=== PATIENT | male | born 1965 | race Caucasian/White ===

== ENCOUNTER 2017-06-29 14:17 | Inpatient (IN) | payer OTHER ==
[2017-06-29 19:08] VITALS: BMI 19.8
--- NOTE | 2017-06-29 20:34 | HP ---
Admission ROS [facility] - [facility] Chief Complaint: I WANT TO GO TO REHAB Allergies/Adverse Reactions: Allergies Allergy/AdvReac Type Severity Reaction Status Date / Time seafood Allergy Severe Hives Uncoded 06/29/17 18:57 History of Present Illness: 52 YEARS OLD MALE WITH LONG HISTORY OF HEROIN NICOTINE DEPENDENCE HAS WEIGHT LOSS AND DEPRESSION IS ADMITTED TO REHAB Exam Limitations: No Limitations - Ebola screening Have you traveled outside of the country in the last 21 days: No Have you had contact with anyone from an Ebola affected area: No Have you been sick,other than usual withdrawal symptoms: No Do you have a fever: No - Review of Systems Constitutional: Loss of Appetite, Unintentional Wgt. Loss, Unexplained wgt Loss EENT: reports: No Symptoms Reported Respiratory: reports: No Symptoms reported Cardiac: reports: No Symptoms Reported GI: reports: No Symptoms Reported : reports: No Symptoms Reported Musculoskeletal: reports: No Symptoms Reported Integumentary: reports: Change in Color (BOTH ARMS) Neuro: reports: No Symptoms reported Endocrine: reports: No Symptoms Reported Hematology: reports: No Symptoms Reported Psychiatric: reports: Judgement Intact, Orientated x3, Anxious, Depressed Other Systems: Reviewed and Negative Patient History - Patient Medical History Hx Anemia: No Hx Asthma: No Hx Chronic Obstructive Pulmonary Disease (COPD): No Hx Cancer: No Hx Cardiac Disorders: No Hx Congestive Heart Failure: No Hx Hypertension: No Hx Hypercholesterolemia: No Hx Pacemaker: No HX Cerebrovascular Accident: No Hx Seizures: No Hx Dementia: No Hx Diabetes: No Hx Gastrointestinal Disorders: No Hx Liver Disease: No Hx Genitourinary Disorders: No Hx Sexually Transmitted Disorders: No Hx Renal Disease (ESRD): No Hx Thyroid Disease: No Hx Human Immunodeficiency Virus (HIV): No Hx Depression: Yes Hx Suicide Attempt: No Hx Bipolar Disorder: No Hx Schizophrenia: No - Patient Surgical History Past Surgical History: No - PPD History Previous Implant?: Yes Documented Results: Negative w/o proof Implanted On Prior [facility] Admission?: No PPD to be Administered?: Yes - Smoking Cessation Smoking history: Current every day smoker Have you smoked in the past 12 months: Yes Aproximately how many cigarettes per day: 5 Cigars Per Day: 0 Hx Chewing Tobacco Use: No Initiated information on smoking cessation: Yes 'Breaking Loose' booklet given: 06/29/17 - Substance & Tx. History Hx Alcohol Use: No Substance Use Type: None, Heroin Hx Substance Use Treatment: Yes (2016) - Substances Abused Heroin Route: Injection Frequency: Daily Amount used: 100$ Age of first use: 19 Date of Last Use: 06/23/17 Family Disease History - Family Disease History Family Disease History: Heart Disease: Father (), CA: Mother () , Other: Father, Mother, Brother ( SUICID) Admission Physical Exam [facility] - Vital Signs Vital Signs: Vital Signs - 24 hr 06/29/17 19:03 Temperature 97.4 F L Pulse Rate 76 Respiratory 18 Rate Blood Pressure 105/71 - Physical General Appearance: Yes: No Apparent Distress, Appropriately Dressed, Thin HEENTM: Yes: Hearing grossly Normal, Normal ENT Inspection, Normocephalic, Normal Voice Respiratory: Yes: Chest Non-Tender, Lungs Clear, Normal Breath Sounds, No Respiratory Distress, No Accessory Muscle Use Neck: Yes: Supple, Trachea in good position Breast: Yes: Breasts Symetrical Cardiology: Yes: Regular Rhythm, Regular Rate, S1, S2 Abdominal: Yes: Normal Bowel Sounds, Non Tender, Soft Genitourinary: Yes: Within Normal Limits Back: Yes: Normal Inspection Musculoskeletal: Yes: full range of Motion, Gait Steady Extremities: Yes: Normal Inspection (IV HEROIN SAMMY BOTH INNER ELBOWS), Normal Range of Motion, Non-Tender Neurological: Yes: Fully Oriented, Alert, Motor Strength 5/5, Normal Response, Depressed Affect Integumentary: Yes: Warm, Track Calvin Lymphatic: Yes: Within Normal Limits - Diagnostic (1) Opioid dependence with withdrawal Current Visit: Yes Status: Acute (2) Nicotine dependence Current Visit: Yes Status: Acute Qualifiers: Nicotine product type: cigarettes Substance use status: in withdrawal Qualified Code(s): F17.213 - Nicotine dependence, cigarettes, with withdrawal (3) Weight loss Current Visit: Yes Status: Acute (4) Depression (emotion) Current Visit: Yes Status: Suspected Qualifiers: Depression Type: dysthymia Qualified Code(s): F34.1 - Dysthymic disorder Cleared for Admission [facility] - Detox or Rehab [facility] Level of Care: Observation Bed Detox Regimen/Protocol: Not Applicable Claeared for Rehab Admission: Yes [facility] Breath Alcohol Content Breath Alcohol Content: 0 Urine Drug Screen - Results Drug Screen Negative: No Urine Drug Screen Results: OPI-Opiates, MTD-Methadone Inpatient Rehab Admission - Initial Determination Are CD services needed?: Yes Free of communicable disease: Yes Not in need of hospitalization: Yes - Rehab Admission Criteria Previous failed treatment: Yes Poor recovery environment: Yes Comorbidities: Yes Lacks judgement: No Patient is meeting Inpatient Rehab admission criteria:: Yes
[2017-06-29] MEDS ORDERED: diphenhydrAMINE HCL 50 MG CAPSULE PO PRN (20:35)
[2017-06-29] MEDS ORDERED: guaiFENesin/D-METHORPHAN HB 10 ML UNIT-DOSE CUPS PO PRN (20:35)
[2017-06-29] MEDS ORDERED: MAGNESIUM CITRATE 300 ML BOTTLE PO PRN (20:35)
[2017-06-29] MEDS ORDERED: P-EPHED 60MG/TRIPROLIDI 2.5MG TABLET PO PRN (20:35)
[2017-06-29] MEDS ORDERED: NICOTINE POLACRILEX 2 MG GUM BUC PRN (20:35)
[2017-06-29] MEDS ORDERED: IBUPROFEN 400 MG TABLET (FP) PO PRN (20:35)
[2017-06-29] MEDS ORDERED: MAG HYDROX/AL HYDROX/SIMETH 30 ML UNIT-DOSE CUP PO PRN (20:35)
[2017-06-29] MEDS ORDERED: ACETAMINOPHEN 325 MG TABLET (FP) PO PRN (20:35)
[2017-06-29] MEDS ORDERED: MAGNESIUM HYDROX 2400MG/30ML ORAL SUSPENSION 30 ML CUP PO PRN (20:35)
[2017-06-29] MEDS ORDERED: hydrOXYzine PAMOATE 50 MG CAPSULE (FP) PO PRN (20:35)
[2017-06-29] MEDS ORDERED: LOPERAMIDE HCL 2 MG CAPSULE PO PRN (20:35)
[2017-06-29] MEDS ORDERED: MENTHOL/PHENOL 1 EACH UD MM PRN (20:35)
[2017-06-29] MEDS ORDERED: TUBERCULIN PPD 5 TU/0.1ML VIAL ID ONE (23:42)
[2017-06-29] MEDS: THIAMINE HCL 100 MG TABLET (FP) PO SCH (23:43)
[2017-06-30 01:42] LABS: URINE APPEARANCE CLOUDY; URINE BILIRUBIN NEGATIVE (NEGATIVE); URINE BLOOD NEGATIVE (NEGATIVE); URINE COLOR AMBER; URINE GLUCOSE (UA) NEGATIVE (NEGATIVE); URINE KETONE NEGATIVE (NEGATIVE); URINE LEUK ESTERASE NEGATIVE (NEGATIVE); URINE NITRITE NEGATIVE (NEGATIVE); URINE PROTEIN NEGATIVE (NEGATIVE); URINE UROBILINOGEN NEGATIVE mg/dL (0.2-1.0)
--- NOTE | 2017-06-30 06:38 | HP ---
Psychiatrist Admission - Data Date of interview: 06/30/17 Admission source: [facility] detox Identifying data: This is the first [facility] admission for this 52 years old single male,uneployed on SSI, domiciled Medical History: Unremarkable. Smokes 5 cigarettes daily Psychiatric History: Reports that his first psychiatric contact was approximately in 2006 when he was diagnosed with MDD by a psychiatrist at [facility]. Told communications writer that his brother's in 2001 was the culprit. Reports that he was started on Prozac and Abilify and has been on both medications since. He currently sees a psychiatrist @ [facility] and he is prescribed Prozac 40 mg po daily & Abilify 20 mg po daily. Reports spiritism compliance with medication. Denies history of psychiatric hospitalization or suicidal ideations. At present, reports feeling fine. Denies experiencing psychotic or depressive symptoms Physical/Sexual Abuse/Trauma History: Denies history of verbal, physical or sexual abuse as well as DV relationship. No service Additional Comment: Reports history of multiple arrests including one felony conviction. Denies being on parole/probation at present Vital Signs: Vital Signs - 24 hr 06/29/17 06/30/17 19:03 03:30 Temperature 97.4 F L Pulse Rate 76 Respiratory 18 16 Rate Blood Pressure 105/71 Allergies/Adverse Reactions: Allergies Allergy/AdvReac Type Severity Reaction Status Date / Time shellfish derived Allergy Verified 06/29/17 20:45 seafood Allergy Severe Hives Uncoded 06/29/17 18:57 Date of last physical exam: 06/29/17 Concur with the findings of this exam: Yes - Substance Abuse/Tx History Hx Alcohol Use: No Hx Substance Use: Yes Substance Use Type: Cocaine (Started using cocaine at age 17, consumes $50 worth weekly. Last used 2 weeks ago), Heroin (Started usng heroin at age 19, consumes $100 worth daily. Last used on 06/23/17) Hx Substance Use Treatment: Yes (10 previous inpt detox & 5 inpt rehab) Mental Status Exam - Mental Status Exam Alert and Oriented to: Time, Place, Person Cognitive Function: Fair Patient Appearance: Well Groomed Mood: Hopeful, Euthymic Affect: Constricted Patient Behavior: Cooperative Speech Pattern: Clear Voice Loudness: Normal Thought Process: Intact, Goal Oriented Thought Disorder: Not Present Hallucinations: Denies Suicidal Ideation: Denies Homicidal Ideation: Denies Insight/Judgement: Fair Sleep: Poorly Appetite: Fair Muscle strength/Tone: Normal Gait/Station: Normal Psychiatric Findings - Problem List ([place] 1, 2,3) (1) Opioid dependence Current Visit: Yes Status: Acute (2) Cocaine dependence Current Visit: Yes Status: Acute (3) Nicotine dependence Current Visit: Yes Status: Acute (4) Depressive disorder Current Visit: Yes Status: Acute (5) MDD (major depressive disorder) Current Visit: Yes Status: Ruled-out (6) Substance induced mood disorder Current Visit: Yes Status: Acute - Initial Treatment Plan Initial Treatment Plan: 1) Continue Prozac 40 mg po daily and Abilify 20 mg po daily. 2) Start Trazadone 100 mg po HS. 3) Monitor progress
--- NOTE | 2017-06-30 09:46 | EKG ---
Test Reason : Blood Pressure : / mmHG Vent. Rate : 058 BPM Atrial Rate : 058 BPM P-R Int : 140 ms QRS Dur : 092 ms QT Int : 416 ms P-R-T Axes : 039 082 072 degrees QTc Int : 408 ms SINUS BRADYCARDIA OTHERWISE NORMAL ECG NO PREVIOUS ECGS AVAILABLE Confirmed by CATHERINE LAWRENCE, FRANCESCA ([id number]) on 06/30/2017 9:46:45 AM Referred By: Yazmin Thompson Confirmed By:FRANCESCA ALEXANDER MD
[2017-06-30] MEDS: PRENATAL VITAMINS W/ FOLIC ACID TABLET (FP) PO SCH (10:18)
[2017-06-30] MEDS: NICOTINE 14 MG/24 HOURS TOPICAL PATCH TD SCH (10:19)
[2017-06-30] MEDS: FLUoxetine HCL 20 MG CAPSULE (FP) PO SCH (10:55)
[2017-06-30] MEDS: ARIPiprazole 10 MG TABLET PO SCH (10:56)
[2017-06-30] MEDS: THIAMINE HCL 100 MG TABLET (FP) PO SCH (21:50)
[2017-07-01 06:58] VITALS: TEMP 97.5
[2017-07-01] MEDS: PRENATAL VITAMINS W/ FOLIC ACID TABLET (FP) PO SCH (10:05)
[2017-07-01] MEDS: ARIPiprazole 10 MG TABLET PO SCH (10:07)
[2017-07-01] MEDS: NICOTINE 14 MG/24 HOURS TOPICAL PATCH TD SCH (10:07)
[2017-07-01] MEDS: FLUoxetine HCL 20 MG CAPSULE (FP) PO SCH (10:08)
[2017-07-01] MEDS: THIAMINE HCL 100 MG TABLET (FP) PO SCH (22:12)
[2017-07-02 06:41] VITALS: BP 131/88; PULSE 53
[2017-07-02] MEDS: PRENATAL VITAMINS W/ FOLIC ACID TABLET (FP) PO SCH (09:35)
[2017-07-02] MEDS: FLUoxetine HCL 20 MG CAPSULE (FP) PO SCH (09:36)
[2017-07-02] MEDS: ARIPiprazole 10 MG TABLET PO SCH (09:36)
[2017-07-02] MEDS: NICOTINE 14 MG/24 HOURS TOPICAL PATCH TD SCH (09:37)
--- NOTE | 2017-07-02 12:01 | PN ---
Psychiatric Progress Note Vital Signs: Vital Signs Period Temp Pulse Resp BP Sys/George Pulse Ox Last 24 Hr 97.5 F 53 16-16 131/88 Date of Session: 07/02/17 Chief Complaint:: AMA Discharge Note HPI: Patient addressing Opoid and Cocaine Dependence comorbid with Nicotine Dependence and Depresive Disorder Current Medications: Active Medications Generic Name Dose Route Start Last Admin Trade Name Freq PRN Reason Stop Dose Admin Acetaminophen 650 mg 06/29/17 20:35 Tylenol - PO Q4H PRN PAIN Al Hydroxide/Mg Hydroxide 30 ml 06/29/17 20:35 Mylanta Oral Suspension - PO Q6H PRN DYSPEPSIA Aripiprazole 20 mg 06/30/17 10:15 07/02/17 09:36 Abilify PO 20 mg DAILY JANY Administration Diphenhydramine HCl 50 mg 06/29/17 20:35 Benadryl - PO HSMR1 PRN INSOMNIA Eucalyptus/Menthol/Phenol/Sorbitol 1 each 06/29/17 20:35 Cepastat Lozenge - MM Q4H PRN SORE THROAT Fluoxetine HCl 40 mg 06/30/17 10:15 07/02/17 09:36 Prozac - PO 40 mg DAILY JANY Administration Guaifenesin 10 ml 06/29/17 20:35 Robitussin Dm - PO Q6H PRN COUGH Hydroxyzine Pamoate 50 mg 06/29/17 20:35 Vistaril - PO Q4H PRN AGITATION Ibuprofen 400 mg 06/29/17 20:35 Motrin - PO Q6H PRN SEVERE PAIN Loperamide HCl 4 mg 06/29/17 20:35 Imodium - PO Q6H PRN DIARRHEA Magnesium Citrate 300 ml 06/29/17 20:35 Citroma - PO Q48H PRN CONSTIPATION Magnesium Hydroxide 30 ml 06/29/17 20:35 Milk Of Magnesia - PO DAILY PRN CONSTIPATION Nicotine 14 mg 06/30/17 10:00 07/02/17 09:37 Nicoderm Patch - TD Not Given DAILY JANY Nicotine Polacrilex 2 mg 06/29/17 20:35 Nicorette Gum - BUC Q2H PRN NICOTINE REPLACEMENT RX Multivit/Folic Acid/Iron 1 tab 06/30/17 10:00 07/02/17 09:35 Vitamins ([facility]) - PO 1 tab DAILY JANY Administration Pseudoephedrine/Triprolidine 1 combo 06/29/17 20:35 Actifed - PO TID PRN NASAL CONGESTION Thiamine HCl 100 mg 06/29/17 22:00 07/01/17 22:12 Vitamin B1 - PO 100 mg HS JANY Administration Current Side Effect: No Lab tests ordered: Yes Lab tests reviewed: Yes Provider note:: Patient wants to leave before completing this program. He told senior technical writer at first he did not know why he wanted to leave then he said he wanted to go to his apartment and wanted to moke. He is determined to leave againt medical advice despite encouragement to stay. He is on Prozac 40 mg po daily, Abilify 20 mg po daily and Trazadone 100 mg po HS. He was offered for scripts for these medications be electronicaly transmitted to his pharmacy but he declines that. He is stable for discharge against medical advice Total face to face time:: 25 Mental Status Exam - Mental Status Exam Alert and Oriented to: Time, Place, Person Cognitive Function: Fair Patient Appearance: Disheveled Mood: Hopeful, Euthymic Affect: Constricted Patient Behavior: Cooperative Speech Pattern: Clear Voice Loudness: Normal Thought Process: Intact, Goal Oriented Thought Disorder: Not Present Hallucinations: Denies Suicidal Ideation: Denies Homicidal Ideation: Denies Insight/Judgement: Poor Sleep: Fair Appetite: Good Muscle strength/Tone: Normal Gait/Station: Normal Psychiatric Treatment Plan - Problem List (1) Opioid dependence Current Visit: Yes (2) Cocaine dependence Current Visit: Yes (3) Nicotine dependence Current Visit: Yes (4) Depressive disorder Current Visit: Yes (5) MDD (major depressive disorder) Current Visit: Yes (6) Substance induced mood disorder Current Visit: Yes Initial treatment plan: Patient is leaving AMA
== END 2017-07-02 12:10 | disposition left against medical advice (07) | DRG 770 ==
LOC: YASAS 14:17 → Y3W 19:10
PROVIDERS: ADMIT Psychiatry & Neurology Psychiatry; ATTEND Psychiatry & Neurology Psychiatry
PROC: HZ42ZZZ Group Counseling for Substance Abuse Treatment, Cognitive-Behavioral (ICD-10-PCS; principal; 2017-06-29)
DX: F11.20 Opioid dependence, uncomplicated (principal); F14.20 Cocaine dependence, uncomplicated; F17.210 Nicotine dependence, cigarettes, uncomplicated; F33.9 Major depressive disorder, recurrent, unspecified; F19.24 Other psychoactive substance dependence with psychoactive substance-induced mood disorder; R63.4 Abnormal weight loss; Z68.1 Body mass index [BMI] 19.9 or less, adult
CPT/HCPCS: 81003; 93005; 93010